=== PATIENT | male | born 1930 | race Caucasian/White ===

== ENCOUNTER 2018-05-31 09:22 | Day surgery (SDC) | payer MEDICARE, OTHER ==
[~2018-05-31 09:22] MED LIST: Cefuroxime 10 MG/ML SYRINGE EYELF SCH; Lidocaine 1% PF 2 ML SDV INJECT SCH; Pilocarpine 4% Ophth Soln 15 ML Bot EYELF SCH
[2018-05-31] MEDS: Polymyxin B/Trimethoprim 10 ML Bottle EYELF SCH ×3 (10:31→12:13)
[2018-05-31] MEDS: Brimonidine 0.2% Ophth Soln 5 ML Bottle EYELF SCH ×3 (10:36→12:13)
[2018-05-31] MEDS: Phenylephrine 2.5% Ophth Soln 2 ML Bot EYELF SCH ×5 (10:41→11:52)
[2018-05-31] MEDS: Tropicamide 1% Ophth Soln 15 ML Bottle EYELF SCH ×4 (10:47→11:27)
--- NOTE | 2018-05-31 10:59 | PCM.PREANE ---
Preanesthetic Assessment - Procedure Proposed Procedure: cataract left - Anesthesia/Transfusion/Family Hx Anesthesia History: Prior Anesthesia Without Reaction Family History of Anesthesia Reaction: No Transfusion History: No Prior Transfusion(s) - Review of Systems General: No Symptoms Pulmonary: No Symptoms Cardiovascular: No Symptoms Gastrointestinal: No Symptoms Neurological: No Symptoms Other: Reports: None - Physical Assessment NPO Status Date: 05/30/18 NPO Status Time: 19:00 (sip this am with pills) Pulse: 55 O2 Sat by Pulse Oximetry: 100 Respiratory Rate: 16 Blood Pressure: 156/73 Temperature: 97.7 F Height: 5 ft 11 in Weight: 79.379 kg ASA Class: 3 Mental Status: Alert & Oriented x3 Airway Class: Mallampati = 1 Dentition: Reports: Broken Tooth/Teeth, Missing Tooth/Teeth, Caries Thyro-Mental Finger Breadths: 3 Mouth Opening Finger Breadths: 3 ROM/Head Extension: Full Lungs: Clear to Auscultation, Normal Respiratory Effort Cardiovascular: Regular Rate, Regular Rhythm - Allergies Allergies/Adverse Reactions: Allergies Allergy/AdvReac Type Severity Reaction Status Date / Time acetaminophen [From Percocet] Allergy Hypotension Verified 05/30/18 15:26 ketorolac tromethamine Allergy Hypotension Verified 05/30/18 15:26 [From Toradol] meperidine HCl [From Demerol] Allergy Hypotension Verified 05/30/18 15:26 oxycodone HCl [From Percocet] Allergy Hypotension Verified 05/30/18 15:26 promethazine HCl Allergy Hypotension Verified 05/30/18 15:26 [From Phenergan] chdiene Allergy Hypotension Uncoded 05/30/18 15:26 - Blood Blood Available: No - Anesthesia Plan Beta Memo: Other (bystolic) Med Last Dose Date: 05/31/18 Med Last Dose Time: 07:00 - Acknowledgements Anesthesia Type Planned: MAC Pt an Appropriate Candidate for the Planned Anesthesia: Yes Alternatives and Risks of Anesthesia Discussed w Pt/Guardian: Yes Pt/Guardian Understands and Agrees with Anesthesia Plan: Yes PreAnesthesia Questionnaire HEENT History: Reports: Cataract Cardiovascular History: Reports: High Cholesterol, Hypertension Respiratory History: Reports: None Musculoskeletal History: Reports: Arthritis, RA - Past Surgical History GI Surgical History: Reports: Hernia, Inguinal Other Musculoskeletal Surgeries/Procedures:: bilateral rotator cuff repair - SUBSTANCE USE Smoking Status *Q: Former Smoker Tobacco Use Within Last Twelve Months: No Second Hand Smoke Exposure: No Days Per Week of Alcohol Use: 0 Recreational Drug Use History: No - HOME MEDS Home Medications: Home Meds Antiox#10/Om3/DHA/EPA/Lut/Zeax [I-Caps with Lutein-[place] 3 SFG] 1 each PO BID [History] Aspirin 325 mg PO DAILY 01/18/15 [History] Calcium Carbonate/Vitamin D3 [Calcium 600 + D Tablet] 1 each PO DAILY 01/18/15 [ History] Ezetimibe [Zetia] 10 mg PO DAILY 01/18/15 [History] Fenofibrate Nanocrystallized [Tricor] 48 mg PO DAILY 01/18/15 [History] Fish Oil/[place]-3 Fatty Acids [Fish Oil] 1 each PO DAILY 01/18/15 [History] Fluticasone Propionate [Flonase] 2 sprays NASBOTH BID #1 bottle 01/18/15 [Rx] Losartan [Cozaar] 50 mg PO DAILY 01/18/15 [History] NIFEdipine [Procardia Xl] 30 mg PO DAILY 01/18/15 [History] Nebivolol [Bystolic] 5 mg PO DAILY 01/18/15 [History] Pravastatin Sodium [Pravachol] 40 mg PO DAILY 01/18/15 [History] Tamsulosin [Flomax] 0.4 mg PO ONETIME 01/18/15 [History] Vitamin B Complex Vit C No.4 [Super B Complex] 150 mg PO DAILY 01/18/15 [History ] Cephalexin [Keflex] 500 mg PO Q6HR #30 capsule 01/21/15 [Rx] - CURRENT (IN HOUSE) MEDS Current Meds: Current Medications Brimonidine Tartrate (Alphagan 0.2% Ophth Soln) 0 ml EYELF ASDIRECTED [facility] Stop: 05/31/18 18:00 Last Admin: 05/31/18 10:36 Dose: 1 drop Cefuroxime Sodium (Zinacef) 0 mg EYELF ASDIRECTED [facility] Stop: 05/31/18 18:00 Lidocaine HCl (Xylocaine-Mpf 1%) 0 ml INJECT ASDIRECTED [facility] Stop: 05/31/18 18:00 Phenylephrine HCl (Jung-Synephrine 2.5% Ophth Soln) 0 ml EYELF ASDIRECTED [facility] Stop: 05/31/18 18:00 Last Admin: 05/31/18 10:51 Dose: 1 drop Pilocarpine HCl (Pilocar 4% Ophth Soln) 0 ml EYELF ASDIRECTED [facility] Stop: 05/31/18 18:00 Polymyxin/Trimethoprim Sulfate (Polytrim Ophth Soln) 0 ml EYELF ASDIRECTED [facility] Stop: 05/31/18 18:00 Last Admin: 05/31/18 10:31 Dose: 1 drop Tetracaine HCl (Tetracaine 0.5% Steri-Unit Sarahy) 0 ml EYELF ASDIRECTED [facility] Stop: 05/31/18 18:00 Tropicamide (Mydriacyl 1% Ophth Soln) 0 ml EYELF ASDIRECTED [facility] Stop: 05/31/18 18:00 Last Admin: 05/31/18 10:47 Dose: 1 drop
[2018-05-31] MEDS: Tetracaine HCl/PF 0.5% 4 ML Bottle EYELF SCH ×2 (11:42→11:58)
--- NOTE | 2018-05-31 12:16 | PCM48HPAN ---
Post Anesthesia Note - EVALUATION WITHIN 48HRS OF ANESTHETIC Vital Signs in Normal Range: Yes Patient Participated in Evaluation: Yes Respiratory Function Stable: Yes Airway Patent: Yes Cardiovascular Function Stable: Yes Hydration Status Stable: Yes Pain Control Satisfactory: Yes Nausea and Vomiting Control Satisfactory: Yes Mental Status Recovered: Yes Pulse Rate: 55 SaO2: 100 Resp Rate: 17 Temperature: 36.5 C Blood Pressure: 140/78
[2018-05-31 12:47] VITALS: BP 167/67
== END 2018-05-31 12:28 | disposition home or self-care (01) ==
LOC: JD.SDS 09:22
PROVIDERS: ATTEND Ophthalmology
DX: H25.813 Combined forms of age-related cataract, bilateral (principal); H21.81 Floppy iris syndrome; H21.42 Pupillary membranes, left eye; I10 Essential (primary) hypertension; E78.00 Pure hypercholesterolemia, unspecified; K21.9 Gastro-esophageal reflux disease without esophagitis; Z87.891 Personal history of nicotine dependence; Z79.82 Long term (current) use of aspirin; Z79.899 Other long term (current) drug therapy; Z88.5 Allergy status to narcotic agent; Z88.8 Allergy status to other drugs, medicaments and biological substances
CPT/HCPCS: 66982; A9270; J0697; J2001; V2632

== ENCOUNTER 2018-06-28 06:56 | Day surgery (SDC) | payer MEDICARE, OTHER ==
[~2018-06-28 06:56] MED LIST changes: -Cefuroxime 10 MG/ML SYRINGE EYELF SCH; +Cefuroxime 10 MG/ML SYRINGE EYERT SCH; -Pilocarpine 4% Ophth Soln 15 ML Bot EYELF SCH; +Pilocarpine 4% Ophth Soln 15 ML Bot EYERT SCH
--- NOTE | 2018-06-28 07:11 | PCM.PREANE ---
Preanesthetic Assessment - Anesthesia/Transfusion/Family Hx Anesthesia History: Prior Anesthesia Without Reaction Transfusion History: No Prior Transfusion(s) - Physical Assessment Height: 1.8 m Weight: 78.925 kg - Allergies Allergies/Adverse Reactions: Allergies Allergy/AdvReac Type Severity Reaction Status Date / Time acetaminophen [From Percocet] AdvReac Hypotension Verified 06/27/18 14:49 ketorolac tromethamine AdvReac Hypotension Verified 06/27/18 14:49 [From Toradol] meperidine HCl [From Demerol] AdvReac Hypotension Verified 06/27/18 14:49 oxycodone HCl [From Percocet] AdvReac Hypotension Verified 06/27/18 14:49 promethazine HCl AdvReac Hypotension Verified 06/27/18 14:49 [From Phenergan] chdiene AdvReac Hypotension Uncoded 06/27/18 14:49 PreAnesthesia Questionnaire HEENT History: Reports: Cataract Cardiovascular History: Reports: High Cholesterol, Hypertension Respiratory History: Reports: None Musculoskeletal History: Reports: Arthritis, RA - Past Surgical History GI Surgical History: Reports: Hernia, Inguinal Other Musculoskeletal Surgeries/Procedures:: bilateral rotator cuff repair - HOME MEDS Home Medications: Home Meds Antiox#10/Om3/DHA/EPA/Lut/Zeax [I-Caps with Lutein-[place] 3 SFG] 1 each PO BID [History] Aspirin 325 mg PO DAILY 01/18/15 [History] Calcium Carbonate/Vitamin D3 [Calcium 600 + D Tablet] 1 each PO DAILY 01/18/15 [ History] Ezetimibe [Zetia] 10 mg PO DAILY 01/18/15 [History] Fenofibrate Nanocrystallized [Tricor] 48 mg PO DAILY 01/18/15 [History] Fish Oil/[place]-3 Fatty Acids [Fish Oil] 1 each PO DAILY 01/18/15 [History] Fluticasone Propionate [Flonase] 2 sprays NASBOTH BID #1 bottle 01/18/15 [Rx] Losartan [Cozaar] 50 mg PO DAILY 01/18/15 [History] NIFEdipine [Procardia Xl] 30 mg PO DAILY 01/18/15 [History] Nebivolol [Bystolic] 5 mg PO DAILY 01/18/15 [History] Pravastatin Sodium [Pravachol] 40 mg PO DAILY 01/18/15 [History] Tamsulosin [Flomax] 0.4 mg PO ONETIME 01/18/15 [History] Vitamin B Complex Vit C No.4 [Super B Complex] 150 mg PO DAILY 01/18/15 [History ] Cephalexin [Keflex] 500 mg PO Q6HR #30 capsule 01/21/15 [Rx] - CURRENT (IN HOUSE) MEDS Current Meds: Current Medications Brimonidine Tartrate (Alphagan 0.2% Ophth Soln) 0 ml EYERT ASDIRECTED [facility] Stop: 06/28/18 18:00 Cefuroxime Sodium (Zinacef) 0 mg EYERT ASDIRECTED [facility] Stop: 06/28/18 18:00 Lidocaine HCl (Xylocaine-Mpf 1%) 0 ml INJECT ASDIRECTED [facility] Stop: 06/28/18 18:00 Phenylephrine HCl (Jung-Synephrine 2.5% Ophth Soln) 0 ml EYERT ASDIRECTED [facility] Stop: 06/28/18 18:00 Pilocarpine HCl (Pilocar 4% Ophth Soln) 0 ml EYERT ASDIRECTED [facility] Stop: 06/28/18 18:00 Polymyxin/Trimethoprim Sulfate (Polytrim Ophth Soln) 0 ml EYERT ASDIRECTED [facility] Stop: 06/28/18 18:00 Tetracaine HCl (Tetracaine 0.5% Steri-Unit Sarahy) 0 ml EYERT ASDIRECTED [facility] Stop: 06/28/18 18:00 Tropicamide (Mydriacyl 1% Ophth Soln) 0 ml EYERT ASDIRECTED [facility] Stop: 06/28/18 18:00
[2018-06-28] MEDS: Polymyxin B/Trimethoprim 10 ML Bottle EYERT SCH ×3 (07:12→08:35)
[2018-06-28] MEDS: Brimonidine 0.2% Ophth Soln 5 ML Bottle EYERT SCH ×3 (07:16→08:35)
--- NOTE | 2018-06-28 07:18 | PCM.PREANE ---
Preanesthetic Assessment - Anesthesia/Transfusion/Family Hx Anesthesia History: Prior Anesthesia Without Reaction Family History of Anesthesia Reaction: No Transfusion History: No Prior Transfusion(s) - Review of Systems General: No Symptoms Pulmonary: No Symptoms Cardiovascular: No Symptoms Gastrointestinal: No Symptoms Neurological: No Symptoms Other: Reports: None - Physical Assessment NPO Status Date: 06/28/18 NPO Status Time: 00:00 Pulse: 54 O2 Sat by Pulse Oximetry: 99 Respiratory Rate: 16 Blood Pressure: 153/73 Temperature: 97.8 C Height: 1.8 m Weight: 78.925 kg ASA Class: 2 Mental Status: Alert & Oriented x3 Airway Class: Mallampati = 1 Dentition: Reports: Broken Tooth/Teeth (bilat front) Thyro-Mental Finger Breadths: 3 Mouth Opening Finger Breadths: 3 ROM/Head Extension: Full Lungs: Clear to Auscultation, Normal Respiratory Effort Cardiovascular: Regular Rate, Regular Rhythm - Allergies Allergies/Adverse Reactions: Allergies Allergy/AdvReac Type Severity Reaction Status Date / Time acetaminophen [From Percocet] AdvReac Hypotension Verified 06/27/18 14:49 ketorolac tromethamine AdvReac Hypotension Verified 06/27/18 14:49 [From Toradol] meperidine HCl [From Demerol] AdvReac Hypotension Verified 06/27/18 14:49 oxycodone HCl [From Percocet] AdvReac Hypotension Verified 06/27/18 14:49 promethazine HCl AdvReac Hypotension Verified 06/27/18 14:49 [From Phenergan] chdiene AdvReac Hypotension Uncoded 06/27/18 14:49 - Anesthesia Plan Beta Memo: Betaxolol Med Last Dose Date: 06/28/18 Med Last Dose Time: 06:00 - Acknowledgements Anesthesia Type Planned: MAC Pt an Appropriate Candidate for the Planned Anesthesia: Yes Alternatives and Risks of Anesthesia Discussed w Pt/Guardian: Yes Pt/Guardian Understands and Agrees with Anesthesia Plan: Yes PreAnesthesia Questionnaire HEENT History: Reports: Cataract Cardiovascular History: Reports: High Cholesterol, Hypertension Respiratory History: Reports: None Gastrointestinal History: Reports: GERD Musculoskeletal History: Reports: Arthritis, RA Neurological History: Reports: None Psychiatric History: Reports: None Endocrine/Metabolic History: Reports: None - Past Surgical History HEENT Surgical History: Reports: Cataract Surgery GI Surgical History: Reports: Hernia, Inguinal Musculoskeletal Surgical History: Reports: Shoulder Surgery Other Musculoskeletal Surgeries/Procedures:: bilateral rotator cuff repair - SUBSTANCE USE Smoking Status *Q: Former Smoker - HOME MEDS Home Medications: Home Meds Antiox#10/Om3/DHA/EPA/Lut/Zeax [I-Caps with Lutein-[place] 3 SFG] 1 each PO BID [History] Aspirin 325 mg PO DAILY 01/18/15 [History] Calcium Carbonate/Vitamin D3 [Calcium 600 + D Tablet] 1 each PO DAILY 01/18/15 [ History] Ezetimibe [Zetia] 10 mg PO DAILY 01/18/15 [History] Fenofibrate Nanocrystallized [Tricor] 48 mg PO DAILY 01/18/15 [History] Fish Oil/[place]-3 Fatty Acids [Fish Oil] 1 each PO DAILY 01/18/15 [History] Fluticasone Propionate [Flonase] 2 sprays NASBOTH BID #1 bottle 01/18/15 [Rx] Losartan [Cozaar] 50 mg PO DAILY 01/18/15 [History] NIFEdipine [Procardia Xl] 30 mg PO DAILY 01/18/15 [History] Nebivolol [Bystolic] 5 mg PO DAILY 01/18/15 [History] Pravastatin Sodium [Pravachol] 40 mg PO DAILY 01/18/15 [History] Tamsulosin [Flomax] 0.4 mg PO ONETIME 01/18/15 [History] Vitamin B Complex Vit C No.4 [Super B Complex] 150 mg PO DAILY 01/18/15 [History ] Cephalexin [Keflex] 500 mg PO Q6HR #30 capsule 01/21/15 [Rx] - CURRENT (IN HOUSE) MEDS Current Meds: Current Medications Brimonidine Tartrate (Alphagan 0.2% Ophth Soln) 0 ml EYERT ASDIRECTED [facility] Stop: 06/28/18 18:00 Cefuroxime Sodium (Zinacef) 0 mg EYERT ASDIRECTED [facility] Stop: 06/28/18 18:00 Lidocaine HCl (Xylocaine-Mpf 1%) 0 ml INJECT ASDIRECTED [facility] Stop: 06/28/18 18:00 Phenylephrine HCl (Jung-Synephrine 2.5% Ophth Soln) 0 ml EYERT ASDIRECTED [facility] Stop: 06/28/18 18:00 Pilocarpine HCl (Pilocar 4% Ophth Soln) 0 ml EYERT ASDIRECTED [facility] Stop: 06/28/18 18:00 Polymyxin/Trimethoprim Sulfate (Polytrim Ophth Soln) 0 ml EYERT ASDIRECTED [facility] Stop: 06/28/18 18:00 Last Admin: 06/28/18 07:12 Dose: 1 drop Tetracaine HCl (Tetracaine 0.5% Steri-Unit Sarahy) 0 ml EYERT ASDIRECTED [facility] Stop: 06/28/18 18:00 Tropicamide (Mydriacyl 1% Ophth Soln) 0 ml EYERT ASDIRECTED [facility] Stop: 06/28/18 18:00
[2018-06-28] MEDS: Phenylephrine 2.5% Ophth Soln 2 ML Bot EYERT SCH ×5 (07:21→08:17)
[2018-06-28] MEDS: Tropicamide 1% Ophth Soln 15 ML Bottle EYERT SCH ×4 (07:25→07:58)
[2018-06-28] MEDS: Tetracaine HCl/PF 0.5% 4 ML Bottle EYERT SCH ×2 (08:06→08:25)
--- NOTE | 2018-06-28 08:36 | PCM48HPAN ---
Post Anesthesia Note - EVALUATION WITHIN 48HRS OF ANESTHETIC Vital Signs in Normal Range: Yes Patient Participated in Evaluation: Yes Respiratory Function Stable: Yes Airway Patent: Yes Cardiovascular Function Stable: Yes Hydration Status Stable: Yes Pain Control Satisfactory: Yes Nausea and Vomiting Control Satisfactory: Yes Mental Status Recovered: Yes Pulse Rate: 52 SaO2: 96 Resp Rate: 16 Temperature: 97.8 C Blood Pressure: 146/74
[2018-06-28 08:58] VITALS: BP 157/75
== END 2018-06-28 08:50 | disposition home or self-care (01) ==
LOC: JD.SDS 06:56
PROVIDERS: ATTEND Ophthalmology
DX: H25.811 Combined forms of age-related cataract, right eye (principal); H40.053 Ocular hypertension, bilateral; H21.81 Floppy iris syndrome; H53.022 Refractive amblyopia, left eye; I10 Essential (primary) hypertension; E78.00 Pure hypercholesterolemia, unspecified; K21.9 Gastro-esophageal reflux disease without esophagitis; M06.9 Rheumatoid arthritis, unspecified; Z98.42 Cataract extraction status, left eye; Z96.1 Presence of intraocular lens; Z87.891 Personal history of nicotine dependence; Z79.82 Long term (current) use of aspirin; Z79.1 Long term (current) use of non-steroidal anti-inflammatories (NSAID); Z79.899 Other long term (current) drug therapy
CPT/HCPCS: 66982; A9270; C1780; J0697; J2001